=== PATIENT | male | born 2000 | race Caucasian/White ===

== ENCOUNTER 2022-11-12 11:55 | Emergency (ER) | payer SELFPAY ==
[~2022-11-12] VITALS: Ht 172.7 cm; Wt 86.2 kg
[2022-11-12 12:38] VITALS: BP 156/90
[2022-11-12 13:30] LABS: BASOPHILS # (AUTO) 0.1 K/uL (0.00-0.22); BASOPHILS % (AUTO) 0.6 % (0.0-2.0); HEMATOCRIT 44.2 % (36-52); LYMPHOCYTES # (AUTO) 1.7 K/uL (2.0-11.5); MEAN CORPUSCULAR HEMOGLOBIN 28 pg (27-31); MEAN CORPUSCULAR HGB CONC 34 g/dL (33-37); MONOCYTES # (AUTO) 0.6 K/uL (0.8-1.0); MONOCYTES % (AUTO) 3.3 % (1.7-9.3); NEUTROPHILS # (AUTO) 14.4 K/uL (1.8-7.7); NEUTROPHILS % (AUTO) 86.1 % (42.2-75.2); PLATELET COUNT (AUTO) 419 K/uL (140-450); RED BLOOD CELL COUNT(AUTO) 5.39 MIL/uL (4.20-6.10); RED CELL DISTRIBUTION WIDTH 13.1 % (11.6-13.7); WHITE BLOOD COUNT (AUTO) 16.8 K/uL (4.5-11.0)
--- NOTE | 2022-11-12 14:52 | NUR ---
22YO M PRESENTS W/LUQ PAIN AND NAUSEA/VOMITING AFTER EATING SPICY FOODS LAST NIGHT. PT DENIES D,C, FLU SYMTOMS, URINARY SYMPTOMS. SAFETY MAINTAINED. HX: DENIES ALLERGIES: IBUPROFEN
[2022-11-12] MEDS ORDERED: FAMOTIDINE 20 MG TAB PO ONE (14:55)
[2022-11-12] MEDS ORDERED: ALUMINUM HYD/MAG/SIMETHICONE 30 ML UDC PO ONE (14:55)
[2022-11-12] MEDS ORDERED: ONDANSETRON 4 MG ODT PO ONE (14:55)
--- NOTE | 2022-11-12 15:10 | NUR ---
PT AMB TO BED 5
[2022-11-12 15:45] LABS: ALBUMIN 4.5 g/dL (3.4-5.0); ANION GAP 16.6 (8-16); CARBON DIOXIDE 26.6 mmol/L (21-32); CREATININE 0.7 mg/dL (0.6-1.3); POTASSIUM 4.2 mmol/L (3.5-5.1); TOTAL BILIRUBIN 0.5 mg/dL (0.0-1.0)
[2022-11-12] MEDS ORDERED: ONDA-188 PO (15:59)
[2022-11-12] MEDS ORDERED: ALUM355S59 PO (15:59)
[2022-11-12] MEDS ORDERED: FAMO-92 PO (15:59)
--- NOTE | 2022-11-12 16:16 | NUR ---
Patient discharged with v/s stable. Written and verbal after care instructions FOR GASTRITIS given and explained. Patient alert, oriented and verbalized understanding of instructions. Ambulatory with steady gait. All questions addressed prior to discharge. ID band removed. Patient advised to follow up with PMD. Rx of ZOFRAN,PEPCID, MAALOX given. Opportunity to ask questions provided and answered.
== END 2022-11-12 16:16 | disposition home or self-care (01) ==
LOC: MED 11:55
DX: K29.70 Gastritis, unspecified, without bleeding (principal); R11.2 Nausea with vomiting, unspecified; Z79.899 Other long term (current) drug therapy; Z88.6 Allergy status to analgesic agent
CPT/HCPCS: 36415; 80053; 83690; 85025; 99284; Q0162